=== PATIENT | male | born 1990 | race Two or more races ===

== ENCOUNTER 2016-03-19 17:59 | Emergency (ER) | payer OTHER ==
[~2016-03-19] VITALS: Ht 177.8 cm; Wt 72.6 kg
[2016-03-19] MEDS ORDERED: TDAP [DIPH/PERTUSSIS/TET] 0.5 ML VIAL IM ONE (18:30)
[2016-03-19 21:39] LABS: HIV-1/2 ANTIBODY NON REACTIVE (NONREACTIVE)
[2016-03-19 23:02] VITALS: BP 120/68
[2016-03-20 08:21] LABS: HIV-1 p24 ANTIGEN NON REACTIVE (NONREACTIVE)
[2016-03-20 12:25] LABS: HEPATITIS C VIRUS AB <0.1 s/co ratio (0.0-0.9)
== END 2016-03-19 20:41 | disposition home or self-care (01) ==
LOC: ER 18:02
DX: S61.431A Puncture wound without foreign body of right hand, initial encounter (principal); W46.0XXA Contact with hypodermic needle, initial encounter; Y93.89 Activity, other specified; Y92.89 Other specified places as the place of occurrence of the external cause; Y99.0 Civilian activity done for income or pay
CPT/HCPCS: 36415; 86706; 86803; 87340; A4606; Z7610

== ENCOUNTER 2016-09-07 20:08 | Emergency (ER) | payer OTHER ==
[2016-09-07] MEDS ORDERED: CIPROFLOXACIN HCL 500 MG TABLET ONE (20:21)
[2016-09-07] MEDS ORDERED: CIPROFLOXACIN HCL 250 MG TABLET PO ONE (20:30)
== END 2016-09-07 20:28 | disposition home or self-care (01) ==
LOC: ER 20:11
DX: Z20.811 Contact with and (suspected) exposure to meningococcus (principal)

== ENCOUNTER 2019-11-11 09:46 | Emergency (ER) | payer OTHER ==
[~2019-11-11] VITALS: Ht 175.3 cm; Wt 86.2 kg
[2019-11-11 09:50] VITALS: BP 130/70
== END 2019-11-11 10:14 | disposition home or self-care (01) ==
LOC: ER 09:49
DX: Z20.828 Contact with and (suspected) exposure to other viral communicable diseases (principal)
CPT/HCPCS: 99283; C9803; U0003

== ENCOUNTER 2019-11-18 09:59 | Emergency (ER) | payer OTHER ==
[~2019-11-18] VITALS: Ht 180.3 cm; Wt 79.4 kg
[2019-11-18 10:20] VITALS: BP 133/79
== END 2019-11-18 10:28 | disposition home or self-care (01) ==
LOC: ER 10:01
DX: Z20.828 Contact with and (suspected) exposure to other viral communicable diseases (principal)
CPT/HCPCS: 99283; C9803; U0003

== ENCOUNTER 2019-12-09 09:51 | Emergency (ER) | payer OTHER ==
[~2019-12-09] VITALS: Ht 175.3 cm; Wt 81.6 kg
[2019-12-09 09:58] VITALS: BP 132/81
== END 2019-12-09 10:28 | disposition home or self-care (01) ==
LOC: ER 09:54
DX: Z20.828 Contact with and (suspected) exposure to other viral communicable diseases (principal)
CPT/HCPCS: 99283; C9803; U0003

== ENCOUNTER 2019-12-18 16:07 | Emergency (ER) | payer OTHER ==
[~2019-12-18] VITALS: Ht 175.3 cm; Wt 81.6 kg
[2019-12-18 16:12] VITALS: BP 120/81
--- NOTE | 2019-12-18 16:19 | NUR ---
COVID SWAB DONE AND SENT TO LAB
--- NOTE | 2019-12-18 16:20 | NUR ---
Patient discharged to home in stable condition. Written and verbal after care instructions given. Patient verbalizes understanding of instruction. Pt ambulatory with a steady gait
== END 2019-12-18 16:21 | disposition home or self-care (01) ==
LOC: ER 16:07
DX: Z20.828 Contact with and (suspected) exposure to other viral communicable diseases (principal)
CPT/HCPCS: 99283; C9803; U0003

== ENCOUNTER 2020-01-06 08:41 | Emergency (ER) | payer OTHER ==
[~2020-01-06] VITALS: Ht 172.7 cm; Wt 81.6 kg
[2020-01-06 08:43] VITALS: BP 128/66
== END 2020-01-06 08:58 | disposition home or self-care (01) ==
LOC: ER 08:45
DX: Z20.828 Contact with and (suspected) exposure to other viral communicable diseases (principal)
CPT/HCPCS: 99283; C9803; U0003

== ENCOUNTER 2020-01-14 10:42 | Emergency (ER) | payer OTHER ==
[~2020-01-14] VITALS: Ht 172.7 cm; Wt 81.6 kg
[2020-01-14 10:45] VITALS: BP 120/73
== END 2020-01-14 10:58 | disposition home or self-care (01) ==
LOC: ER 10:45
DX: Z20.828 Contact with and (suspected) exposure to other viral communicable diseases (principal)
CPT/HCPCS: 99283; C9803; U0003

== ENCOUNTER 2020-01-27 09:15 | Emergency (ER) | payer OTHER ==
[~2020-01-27] VITALS: Ht 172.7 cm; Wt 72.6 kg
[2020-01-27 09:17] VITALS: BP 129/88
--- NOTE | 2020-01-27 09:45 | NUR ---
COVID SWAB SENT. Patient discharged to home in stable condition. Written and verbal after care instructions given. Patient verbalizes understanding of instruction.
== END 2020-01-27 09:46 | disposition home or self-care (01) ==
LOC: ER 09:15
DX: Z20.828 Contact with and (suspected) exposure to other viral communicable diseases (principal)
CPT/HCPCS: 99283; C9803; U0003

== ENCOUNTER 2020-02-11 09:40 | Emergency (ER) | payer OTHER ==
[~2020-02-11] VITALS: Ht 172.7 cm; Wt 81.6 kg
[2020-02-11 09:42] VITALS: BP 122/61
--- NOTE | 2020-02-11 10:03 | NUR ---
Patient discharged to home in stable condition. Written and verbal after care instructions given. Patient verbalizes understanding of instruction.
--- NOTE | 2020-02-11 10:03 | NUR ---
covid 19 swab collected and sent to lab
== END 2020-02-11 10:04 | disposition home or self-care (01) ==
LOC: ER 09:41
DX: U07.1 COVID-19 (principal)
CPT/HCPCS: 99283; C9803; U0003

== ENCOUNTER 2020-02-12 12:56 | Emergency (ER) | payer OTHER ==
[~2020-02-12] VITALS: Ht 172.7 cm; Wt 81.6 kg
[2020-02-12 13:00] VITALS: BP 135/73
--- NOTE | 2020-02-12 13:35 | NUR ---
Covid swab sent. Patient discharged to home in stable condition. Written and verbal after care instructions given. Patient verbalizes understanding of instruction.
--- NOTE | 2020-02-13 16:51 | NUR ---
PHONE NUMBERS ON FILE CALLED, UNABLE TO RECEIVE MESSAGES, FULL
== END 2020-02-12 13:35 | disposition home or self-care (01) ==
LOC: ER 12:57
DX: U07.1 COVID-19 (principal)
CPT/HCPCS: 87426; 99283; C9803; U0003

== ENCOUNTER 2020-05-29 10:40 | Emergency (ER) | payer OTHER ==
[~2020-05-29] VITALS: Ht 172.7 cm; Wt 81.6 kg
[2020-05-29 10:48] VITALS: BP 131/77
--- NOTE | 2020-05-29 11:12 | NUR ---
covid 19 swab collected and sent to lab
--- NOTE | 2020-05-29 11:13 | NUR ---
Patient discharged to home in stable condition. Written and verbal after care instructions given. Patient verbalizes understanding of instruction.
== END 2020-05-29 11:13 | disposition home or self-care (01) ==
LOC: ER 10:48
DX: Z20.822 Contact with and (suspected) exposure to COVID-19 (principal); Z86.16 Personal history of COVID-19; R03.0 Elevated blood-pressure reading, without diagnosis of hypertension
CPT/HCPCS: 99283; C9803; U0003

== ENCOUNTER 2020-07-27 14:01 | Emergency (ER) | payer OTHER ==
[~2020-07-27] VITALS: Ht 175.3 cm; Wt 81.6 kg
[2020-07-27 14:05] VITALS: BP 125/70
--- NOTE | 2020-07-27 14:39 | NUR ---
COVID SWAB DONE AND SENT TO LAB
--- NOTE | 2020-07-27 14:40 | NUR ---
Patient discharged to home in stable condition. Written and verbal after care instructions given. Patient verbalizes understanding of instruction. Pt ambulatory with a steady gait
== END 2020-07-27 14:46 | disposition home or self-care (01) ==
LOC: ER 14:04
DX: Z20.822 Contact with and (suspected) exposure to COVID-19 (principal)
CPT/HCPCS: 99283; C9803; U0003

== ENCOUNTER 2020-08-08 15:52 | Emergency (ER) | payer OTHER ==
[~2020-08-08] VITALS: Ht 175.3 cm; Wt 81.6 kg
[2020-08-08 15:53] VITALS: BP 124/76
--- NOTE | 2020-08-08 16:23 | NUR ---
COVID SWAB SENT. Patient discharged to home in stable condition. Written and verbal after care instructions given. Patient verbalizes understanding of instruction.
== END 2020-08-08 16:24 | disposition home or self-care (01) ==
LOC: ER 15:53
DX: Z20.822 Contact with and (suspected) exposure to COVID-19 (principal)
CPT/HCPCS: 99283; C9803; U0003

== ENCOUNTER 2020-08-26 17:22 | Emergency (ER) | payer OTHER ==
[~2020-08-26] VITALS: Ht 175.3 cm; Wt 81.6 kg
[2020-08-26 17:23] VITALS: BP 124/71
--- NOTE | 2020-08-26 17:48 | NUR ---
Patient discharged to home in stable condition. Written and verbal after care instructions given. Patient verbalizes understanding of instruction.
== END 2020-08-26 17:48 | disposition home or self-care (01) ==
LOC: ER 17:23
DX: Z20.822 Contact with and (suspected) exposure to COVID-19 (principal)
CPT/HCPCS: 99283; C9803; U0003

== ENCOUNTER 2020-08-31 17:14 | Emergency (ER) | payer OTHER ==
[~2020-08-31] VITALS: Ht 175.3 cm; Wt 81.6 kg
[2020-08-31 17:19] VITALS: BP 122/69
--- NOTE | 2020-08-31 17:49 | NUR ---
covid swab sent to lab. Patient discharged to home in stable condition. Written and verbal after care instructions given. Patient verbalizes understanding of instruction.
== END 2020-08-31 17:51 | disposition home or self-care (01) ==
LOC: ER 17:15
DX: Z20.822 Contact with and (suspected) exposure to COVID-19 (principal)
CPT/HCPCS: 99283; C9803; U0003

== ENCOUNTER 2020-09-07 13:34 | Emergency (ER) | payer OTHER ==
[~2020-09-07] VITALS: Ht 175.3 cm; Wt 81.6 kg
[2020-09-07 13:39] VITALS: BP 140/70
--- NOTE | 2020-09-07 13:48 | NUR ---
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 DENIES HAVING ANY SYMPTONS.
== END 2020-09-07 14:04 | disposition home or self-care (01) ==
LOC: ER 13:36
DX: Z20.822 Contact with and (suspected) exposure to COVID-19 (principal); R03.0 Elevated blood-pressure reading, without diagnosis of hypertension
CPT/HCPCS: 99283; C9803; U0003

== ENCOUNTER 2020-09-14 16:31 | Emergency (ER) | payer OTHER ==
[~2020-09-14] VITALS: Ht 180.3 cm; Wt 83.9 kg
[2020-09-14 16:34] VITALS: BP 120/81
== END 2020-09-14 17:22 | disposition home or self-care (01) ==
LOC: ER 16:33
DX: Z20.822 Contact with and (suspected) exposure to COVID-19 (principal)
CPT/HCPCS: 99283; C9803; U0003